=== PATIENT | female | born 1995 | race Two or more races ===

== ENCOUNTER 2016-04-22 18:32 | Emergency (ER) | payer MEDICAID ==
[2016-04-22 21:55] LABS: SPECIFIC GRAVITY 1.025 (1.001-1.030); URINE BILIRUBIN NEGATIVE (NEGATIVE); URINE BLOOD 2+ (NEGATIVE); URINE GLUCOSE (UA) NEGATIVE (NEGATIVE); URINE LEUKOCYTE ESTERASE 1+ (NEGATIVE); URINE NITRITE NEGATIVE (NEGATIVE); URINE PROTEIN TRACE (NEGATIVE)
[2016-04-22 21:56] LABS: URINE UROBILINOGEN 4 mg/dL (0-1 mg/dl)
[2016-04-22 21:57] LABS: HCG,QUALITATIVE URINE POSITIVE; URINE APPEARANCE HAZY; URINE COLOR DARK YELLOW
[2016-04-22] MEDS ORDERED: ACETAMINOPHEN 500 MG TABLET ONE (21:59)
[2016-04-22 22:08] LABS: URINE RBC 0-2 /hpf
[2016-04-22 22:09] LABS: URINE BACTERIA 2+
[2016-04-22] MEDS ORDERED: NITROFURANTOIN/NITROFURAN MAC 100 MG CAPSULE ONE (22:11)
== END 2016-04-22 22:26 | disposition home or self-care (01) ==
LOC: ED 18:32
DX: O23.40 Unspecified infection of urinary tract in pregnancy, unspecified trimester (principal); Z3A.00 Weeks of gestation of pregnancy not specified
CPT/HCPCS: 81025; 81001; 99283 ×2; A9270 ×2